=== PATIENT | female | born 1950 | race Caucasian/White ===

== ENCOUNTER 2019-07-01 08:28 | Emergency (ER) | payer MEDICARE, OTHER ==
[~2019-07-01] VITALS: Ht 157.5 cm; Wt 72.3 kg
--- NOTE | 2019-07-01 08:35 | NUR ---
daughter in law : maria ines mcclellan [phone]
[2019-07-01] MEDS ORDERED: HYDR25TA6 PO (08:58)
[2019-07-01] MEDS ORDERED: LEVO50TA PO (08:58)
[2019-07-01] MEDS ORDERED: ATEN100T PO (08:58)
[2019-07-01] MEDS ORDERED: POTA10TA6 PO (08:58)
--- NOTE | 2019-07-01 08:59 | NUR ---
PT SITTING IN BED, SO SIGNS OF DISTRESS, PT STATES SHE HAS HTN, HER PCP IS AWARE, SHE STATES IT IS NORMAL FOR HER BP TO ELEVATE IN DOCTOR'S OFFICE/ HOSPITAL AND HER PCP IS AWARE OF THIS WELL.
[2019-07-01] MEDS ORDERED: ACETAMINOPHEN 500 MG TABLET PO ONE (09:30)
--- NOTE | 2019-07-01 09:41 | NUR ---
TASK RN: RN REQUESTED TYLENOL FROM PHARMACY.
--- NOTE | 2019-07-01 09:44 | NUR ---
TASK RN: RN INFORMED PT THAT A URINE SAMPLE IS NEEDED. RN PROVIDED PT WITH A URINE SAMPLE CUP. PT AMBULATED TO THE RESTROOM WITH A STEADY.
--- NOTE | 2019-07-01 09:51 | NUR ---
TASK RN: PT MEDICATED PER EMAR. URINE SENT.
--- NOTE | 2019-07-01 09:55 | NUR ---
TASK RN: US AT BEDSIDE.
[2019-07-01 09:57] LABS: BASOPHILS # (AUTO) 0.02 x10^3/uL (0-0.1); BASOPHILS % (AUTO) 0 % (0-1); EOSINOPHILS # (AUTO) 0.03 x10^3/uL (0-0.4); EOSINOPHILS % (AUTO) 1 % (1-7); LYMPHOCYTES # (AUTO) 0.97 x10^3/uL (1-3.4); LYMPHOCYTES % (AUTO) 15 % (22-44); MD NO; MEAN CORPUSCULAR HEMOGLOBIN 32.1 pg (27.0-34.8); MEAN CORPUSCULAR HGB CONC 34.9 g/dL (32.4-35.8); MEAN CORPUSCULAR VOLUME 91.8 fL (80-100); MEAN PLATELET VOLUME 7.8 fL (7.4-10.4); MONOCYTES # (AUTO) 0.47 x10^3/uL (0.2-0.8); MONOCYTES % (AUTO) 8 % (2-9); NEUTROPHILS # (AUTO) 4.83 x10^3/uL (1.8-6.8); NEUTROPHILS % (AUTO) 76 % (42-75); PLATELET COUNT 312 x10^3/uL (130-400); RED BLOOD COUNT 3.79 x10^6/uL (3.82-5.3); RED CELL DISTRIBUTION WIDTH 12.9 % (9.6-15.2)
[2019-07-01 10:01] LABS: MICROSCOPIC NOT IND
[2019-07-01 10:04] LABS: CULTURE INDICATED? NO
[2019-07-01 10:06] LABS: ALBUMIN 3.6 g/dL (3.4-5.0); ANION GAP 5 mmol/L (5-15); CALCIUM 9.7 mg/dL (8.5-10.1); CHLORIDE 102 mmol/L (98-107); CREATININE 0.79 mg/dL (0.55-1.02)
[2019-07-01 10:09] LABS: HCT (SEDRATE) 34.8 % (34.6-47.8)
--- NOTE | 2019-07-01 10:20 | NUR ---
PT IN BED, NO SIGNS OF DISTRESS. WILL CONTINUE TO MONITOR.
--- NOTE | 2019-07-01 11:16 | NUR ---
PT CONDITION UNCHANGED, WILL CONTINUE TO MONITOR.
[2019-07-01 11:53] VITALS: BP 134/61
--- NOTE | 2019-07-01 11:57 | NUR ---
REPORT GIVEN TO MARK PLASCENCIA, WHO IS TO ASSUME PRIMARY CARE.
--- NOTE | 2019-07-01 12:07 | NUR ---
Assumed care from Danika FLORES
--- NOTE | 2019-07-01 12:37 | NUR ---
Pt transported to MRI
--- NOTE | 2019-07-01 13:19 | NUR ---
Pt still at MRI
--- NOTE | 2019-07-01 13:35 | NUR ---
Pt back from MRI.
--- NOTE | 2019-07-01 13:56 | NUR ---
Patient/Caregiver given discharge instructions and they have confirmed that they understand the instructions. Patient ambulatory with steady gait.
--- NOTE | 2019-07-01 14:12 | NUR ---
Patient/Caregiver given discharge instructions and they have confirmed that they understand the instructions. Patient ambulatory with steady gait.
== END 2019-07-01 14:13 | disposition home or self-care (01) ==
LOC: ED 09:38
DX: M71.21 Synovial cyst of popliteal space [Baker], right knee (principal); M79.661 Pain in right lower leg
CPT/HCPCS: 36415; 71045; 80048; 81003; 82040; 83605; 85025; 85651; 86140; 87040; 99285

== ENCOUNTER → 2019-07-22 | Outpatient (CLI) | payer MEDICARE, OTHER ==
[~2019-07-22] MED LIST: ATEN100T PO; GADOTERATE 7.5 MMOL/15 ML SYR ONE; HYDR25TA6 PO; LEVO50TA PO; POTA10TA6 PO
== END | disposition home or self-care (01) ==
LOC: CFH 14:40
PROVIDERS: ATTEND Nurse Practitioner
DX: S92.415A Nondisplaced fracture of proximal phalanx of left great toe, initial encounter for closed fracture (principal); M79.89 Other specified soft tissue disorders; M94.8X7 Other specified disorders of cartilage, ankle and foot; M25.475 Effusion, left foot; X58.XXXA Exposure to other specified factors, initial encounter; Y93.89 Activity, other specified; Y92.89 Other specified places as the place of occurrence of the external cause; Y99.8 Other external cause status
CPT/HCPCS: 73720; A9575